=== PATIENT | male | born 1945 | race Caucasian/White ===

== ENCOUNTER 2020-04-17 11:43 | Inpatient (IN) | payer MEDICARE, BC, MEDICAID ==
[~2020-04-17] VITALS: Ht 177.8 cm; Wt 90.7 kg
[2020-04-17 12:26] LABS: BASOPHILS # (AUTO) 0.1 X10'3 (0-0.2); BASOPHILS % (AUTO) 0.5 % (0-1); EOSINOPHILS % (AUTO) 0.5 % (0-6); HEMATOCRIT 30.4 % (42.0-52.0); LYMPHOCYTES # (AUTO) 1.6 X10'3 (1.1-4.8); MEAN CORPUSCULAR HEMOGLOBIN 29.2 PG (27.0-31.0); MEAN CORPUSCULAR HGB CONC 32.8 g/dL (33.0-36.5); MEAN PLATELET VOLUME 7.2 FL (7.4-10.4); MONOCYTES % (AUTO) 10.3 % (2-12); NEUTROPHILS # (AUTO) 7.1 X10'3 (1.8-7.7); NEUTROPHILS % (AUTO) 72.7 % (42-75); PLATELET COUNT 394 X10'3 (140-440); RED BLOOD COUNT 3.42 X10'6 (4.70-6.10); RED CELL DISTRIBUTION WIDTH 16.3 % (11.5-14.5); WHITE BLOOD COUNT 9.8 X10'3 (4.5-11.0)
[2020-04-17 12:43] LABS: ALANINE AMINOTRANSFERASE 20 U/L (12-78); ALBUMIN 2.9 G/DL (3.4-5.0); ALBUMIN/GLOBULIN RATIO 0.7 (1.1-1.5); ALKALINE PHOSPHATASE 52 IU/L (46-116); ANION GAP 8 (8-16); ASPARTATE AMINO TRANSFERASE 22 U/L (10-37); BILIRUBIN,TOTAL 0.5 MG/DL (0.1-1.0); BLOOD UREA NITROGEN 12 MG/DL (7-18); CALCIUM 9.3 MG/DL (8.5-10.1); CHLORIDE 98 MMOL/L (99-107); CREATININE 0.92 MG/DL (0.60-1.10); GLUCOSE 110 MG/DL (70-104); POTASSIUM 3.7 MMOL/L (3.5-5.1); SODIUM 133 MMOL/L (135-145); TOTAL CARBON DIOXIDE 26.7 MMOL/L (24-32); TOTAL PROTEIN 7.1 G/DL (6.4-8.2); eGFR 80 ML/MIN
[2020-04-17] MEDS ORDERED: methylPREDNISolone sod succ 125mg/2ml vial IV ONE (13:15)
[2020-04-17] MEDS ORDERED: ipratropium/albuterol 3ml nebule NEB ONE (13:15)
[2020-04-17] MEDS ORDERED: ARIP5TAB14 PO (13:31)
[2020-04-17] MEDS ORDERED: CHOL100046 PO (13:31)
[2020-04-17] MEDS ORDERED: MULT1TAB65 PO (13:31)
[2020-04-17] MEDS ORDERED: ESCI5TAB12 PO (13:31)
[2020-04-17] MEDS ORDERED: FLUT16SP20 BOTHNARES (13:34)
[2020-04-17] MEDS ORDERED: LACT1CAP65 PO (13:34)
[2020-04-17] MEDS ORDERED: FINA5TAB11 PO (13:34)
[2020-04-17] MEDS ORDERED: FOLI0.4T14 PO (13:34)
[2020-04-17] MEDS ORDERED: POLY17PO10 PO (13:34)
[2020-04-17] MEDS ORDERED: MELA1TAB28 PO (13:34)
[2020-04-17] MEDS ORDERED: QUET25TA PO (13:37)
[2020-04-17] MEDS ORDERED: PSYL575P22 PO (13:37)
[2020-04-17] MEDS ORDERED: TIOT4MIS3 IH (13:37)
[2020-04-17] MEDS ORDERED: THIA50TA10 PO (13:37)
[2020-04-17] MEDS ORDERED: SUCR1TAB34 PO (13:42)
[2020-04-17] MEDS ORDERED: OMEP-50 PO (13:42)
[2020-04-17] MEDS ORDERED: DIAZ5TAB4 PO (13:42)
[2020-04-17] MEDS ORDERED: DOCU250C16 PO (13:42)
[2020-04-17] MEDS ORDERED: GUAI400T92 PO (13:42)
[2020-04-17] MEDS ORDERED: GABA-530 PO (13:42)
[2020-04-17] MEDS ORDERED: magnesium hydroxide 30ml (MOM) UD suspension PO PRN (14:55)
[2020-04-17] MEDS ORDERED: HYDROcodone/acetaminophen 5mg/325mg tablet PO PRN (14:55)
[2020-04-17] MEDS ORDERED: magnesium 2GM in 50ml NS 50 ML IV PRN (14:55)
[2020-04-17] MEDS ORDERED: magnesium 4gm in 100ml NS 100 ML IV PRN (14:55)
[2020-04-17] MEDS ORDERED: potassium CL 10mEq/100ml bag 100 ML IV PRN ×2 (14:55)
[2020-04-17] MEDS ORDERED: ondansetron/PF 4mg/2ml inj IV PRN (14:55)
[2020-04-17] MEDS ORDERED: mag hydrox/Alum hydrox/simeth 30ml oral suspension PO PRN (14:55)
[2020-04-17] MEDS ORDERED: bisacodyl 10mg suppository rectal RC PRN (14:55)
[2020-04-17] MEDS ORDERED: magnesium Cl slow-release 64mg tablet PO PRN (14:55)
[2020-04-17] MEDS ORDERED: acetaminophen 650mg rectal suppository RC PRN (14:55)
[2020-04-17] MEDS ORDERED: potassium Cl 20 mEq SR tablet PO PRN ×2 (14:55)
[2020-04-17] MEDS ORDERED: acetaminophen 325mg tablet PO PRN ×2 (14:55)
[2020-04-17] MEDS: normal saline 1000ml 1,000 ML IV SCH (15:32)
[2020-04-17 15:34] LABS: HEMOGLOBIN A1C 6.3 % (4.5-6.2)
--- NOTE | 2020-04-17 16:06 | NUR ---
Pt's [facility] called for update. Return #[phone], and to ask for Lydia or Zaina as they are significantly familiar with pt's case.
[2020-04-17 16:15] LABS: CLARITY,URINE SLIGHTLY CLOUDY (Clear); COLOR,URINE YELLOW (Yellow); GLUCOSE, URINE NEGATIVE (Neg); KETONES,URINE TRACE mg/dl (Neg); LEUKOCYTE ESTERASE ,URINE NEGATIVE (Neg); NITRITES, URINE NEGATIVE (Neg); OCCULT BLOOD,URINE NEGATIVE (Neg); PROTEIN,URINE NEGATIVE (Neg)
[2020-04-17 16:16] LABS: UA COLLECTION TYPE STRAIGHT CATH
[2020-04-17 16:21] LABS: HYALINE CASTS 0-3 /LPF (NEGATIVE); MUCUS STRANDS MANY /LPF (Neg); SQUAMOUS EPITHELIAL CELL,UR FEW /LPF (FEW); TRANSITIONAL EPI CELLS,URINE FEW /HPF
[2020-04-17 16:22] LABS: BACTERIA,URINE NONE SEEN /HPF (Neg); RBC,URINE 0-2 /HPF (0-2); WBC,URINE 0-4 /HPF (0-4)
[2020-04-17] MEDS: sucralfate 1 gm tablet PO SCH ×2 (17:00→21:00)
[2020-04-17 17:17] VITALS: BP 163/70
[2020-04-17] MEDS: HYDROcodone/acetaminophen 10/325mg tab PO PRN ×2 (17:26→21:33)
--- NOTE | 2020-04-17 18:02 | NUR ---
AGER ID: [id number] MESSAGE: [id number] Modgurpreet, Chava can I add a order for RT eval and treat his lung sound bad from COPD. #[id number] Susie (101 character message out of a maximum of 240) CLOSE [X]
--- NOTE | 2020-04-17 18:10 | NUR ---
Patient in room ORTHO 4010. I have received report from RYLAN Richards and had the opportunity to ask questions and assume patient care.
[2020-04-17] MEDS: K and/or MAG REPLACEMENT MC SCH (20:00)
[2020-04-17] MEDS: diazepam 5mg tablet PO SCH (20:03)
[2020-04-17] MEDS: docusate sod 250mg capsule PO SCH (20:03)
[2020-04-17] MEDS: heparin, porcine 5000 units/ml vial SQ SCH (20:03)
[2020-04-17] MEDS: gabapentin 100mg capsule PO SCH (20:03)
[2020-04-17] MEDS: lactobacillus rhamnosus 10,000 MMU CELLS/CAPSULE PO SCH (20:04)
[2020-04-17] MEDS: pantoprazole 40mg Tablet.DR PO SCH (20:08)
[2020-04-17] MEDS: QUEtiapine 25mg tablet PO SCH (20:08)
[2020-04-17] MEDS: polyethylene glycol 3350 17gm powd pack PO SCH (20:09)
[2020-04-17] MEDS: Melatonin 3mg tablet PO SCH (21:34)
[2020-04-17 22:00] VITALS: BP 149/73
[2020-04-18] MEDS: HYDROcodone/acetaminophen 10/325mg tab PO PRN ×4 (04:01→17:12)
[2020-04-18] MEDS: normal saline 1000ml 1,000 ML IV SCH ×2 (04:15→08:41)
[2020-04-18 06:00] VITALS: BP 150/69
--- NOTE | 2020-04-18 06:13 | NUR ---
Problems reprioritized. Patient report given, questions answered & plan of care reviewed with RYLAN [place].
[2020-04-18 06:31] LABS: BASOPHILS # (AUTO) 0.1 X10'3 (0-0.2); BASOPHILS % (AUTO) 0.7 % (0-1); EOSINOPHILS % (AUTO) 0 % (0-6); HEMATOCRIT 29.1 % (42.0-52.0); HEMOGLOBIN 9.8 g/dl (14.0-17.9); LYMPHOCYTES % (AUTO) 13.6 % (21-51); MEAN CORPUSCULAR HEMOGLOBIN 30.2 PG (27.0-31.0); MEAN CORPUSCULAR HGB CONC 33.5 g/dL (33.0-36.5); MEAN CORPUSCULAR VOLUME 90.2 FL (78-98); MEAN PLATELET VOLUME 7.7 FL (7.4-10.4); MONOCYTES # (AUTO) 0.6 X10'3 (0-0.9); MONOCYTES % (AUTO) 8.1 % (2-12); NEUTROPHILS # (AUTO) 5.5 X10'3 (1.8-7.7); NEUTROPHILS % (AUTO) 77.6 % (42-75); PLATELET COUNT 363 X10'3 (140-440); RED BLOOD COUNT 3.22 X10'6 (4.70-6.10); WHITE BLOOD COUNT 7.1 X10'3 (4.5-11.0)
--- NOTE | 2020-04-18 06:46 | NUR ---
Patient in room ORTHO 4010. I have received report from Lashanda FAGAN and had the opportunity to ask questions and assume patient care.
[2020-04-18 06:56] LABS: ALANINE AMINOTRANSFERASE 23 U/L (12-78); ALBUMIN 2.7 G/DL (3.4-5.0); ALBUMIN/GLOBULIN RATIO 0.6 (1.1-1.5); ALKALINE PHOSPHATASE 46 IU/L (46-116); ANION GAP 9 (8-16); ASPARTATE AMINO TRANSFERASE 26 U/L (10-37); BILIRUBIN,TOTAL 0.4 MG/DL (0.1-1.0); BLOOD UREA NITROGEN 15 MG/DL (7-18); CALCIUM 9.1 MG/DL (8.5-10.1); CHLORIDE 100 MMOL/L (99-107); CHOL/HDL RATIO 1.8 (0.00-4.99); CHOLESTEROL 135 MG/DL (0-200); CREATININE 0.79 MG/DL (0.60-1.10); GLUCOSE 116 MG/DL (70-104); HDL CHOLESTEROL 73 MG/DL (35-60); LDL CHOLESTEROL 53 MG/DL (50-100); MAGNESIUM 2.4 MG/DL (1.5-2.4); PHOSPHORUS 3.9 MG/DL (2.3-4.5); POTASSIUM 4.2 MMOL/L (3.5-5.1); SODIUM 135 MMOL/L (135-145); TOTAL CARBON DIOXIDE 25.8 MMOL/L (24-32); TRIGLYCERIDES 55 MG/DL (20-135); eGFR > 90 ML/MIN
[2020-04-18] MEDS: K and/or MAG REPLACEMENT MC SCH ×2 (08:00→20:00)
[2020-04-18] MEDS: Tiotropium Br/Olodaterol HCl (Stiolto Respimat Inhal Spray) IH SCH (08:00)
[2020-04-18] MEDS ORDERED: [UNRECOGNIZED DRUG - OTHER] PO SCH (08:00)
[2020-04-18] MEDS ORDERED: PSYLLIUM HUSK PO SCH (08:00)
[2020-04-18] MEDS: docusate sod 250mg capsule PO SCH ×2 (08:04→20:32)
[2020-04-18] MEDS: lactobacillus rhamnosus 10,000 MMU CELLS/CAPSULE PO SCH ×2 (08:06→20:14)
[2020-04-18] MEDS: folic acid 0.4mg tablet PO SCH (08:08)
[2020-04-18] MEDS: gabapentin 100mg capsule PO SCH ×2 (08:10→20:14)
[2020-04-18] MEDS: pantoprazole 40mg Tablet.DR PO SCH ×2 (08:10→20:32)
[2020-04-18] MEDS: thiamine 100mg tablet PO SCH (08:11)
[2020-04-18] MEDS: multivitamins, therapeutics tablet PO SCH (08:11)
[2020-04-18] MEDS: diazepam 5mg tablet PO SCH ×2 (08:12→20:14)
[2020-04-18] MEDS: aripiprazole 5mg tablet PO SCH (08:13)
[2020-04-18] MEDS: ESCITALOPRAM OXALATE 5 MG TABLET PO SCH (08:14)
[2020-04-18] MEDS: sucralfate 1 gm tablet PO SCH ×4 (08:15→20:14)
[2020-04-18] MEDS: heparin, porcine 5000 units/ml vial SQ SCH ×2 (08:19→20:13)
[2020-04-18] MEDS: psyllium seed 3.4 gm packet PO SCH (08:26)
[2020-04-18] MEDS: finasteride 5mg tablet PO SCH (08:32)
[2020-04-18 10:00] VITALS: BP 159/68
--- NOTE | 2020-04-18 11:16 | NUR ---
Student Medication Administration: For this medication-pass time frame 8377-8467, all medications were reviewed, administered and documented per hospital policy by Lefty Tinajero. Student documentation:I have reviewed and agree with all interventions, assessments performed and documented by Lefty Tinajero.
[2020-04-18] MEDS: morphine 2 MG/ML inj. syringe IV PRN ×3 (11:21→20:15)
[2020-04-18] MEDS ORDERED: pneumococcal 23-VAL P-sac vacc 25 mcg/0.5ml vial IMVAC ONE (15:10)
[2020-04-18 18:00] VITALS: BP 155/64
--- NOTE | 2020-04-18 18:32 | NUR ---
Problems reprioritized. Patient report given, questions answered & plan of care reviewed with Peggy FAGAN.
[2020-04-18] MEDS: QUEtiapine 25mg tablet PO SCH (20:13)
[2020-04-18] MEDS: polyethylene glycol 3350 17gm powd pack PO SCH (20:14)
[2020-04-18 22:00] VITALS: BP 155/67
[2020-04-19] VITALS (17 sets, daily range): BP systolic 135–202; BP diastolic 62–101
[2020-04-19] MEDS: normal saline 1000ml 1,000 ML IV SCH ×3 (00:04→19:40)
[2020-04-19] MEDS: HYDROcodone/acetaminophen 10/325mg tab PO PRN ×3 (00:04→22:48)
[2020-04-19] MEDS: Melatonin 3mg tablet PO SCH ×2 (00:04→22:25)
[2020-04-19] MEDS: morphine 2 MG/ML inj. syringe IV PRN ×3 (03:16→12:52)
--- NOTE | 2020-04-19 06:37 | NUR ---
Patient in room ORTHO 4009. I have received report from edie from surgical and had the opportunity to ask questions and assume patient care.
[2020-04-19 06:49] LABS: BASOPHILS # (AUTO) 0.1 X10'3 (0-0.2); BASOPHILS % (AUTO) 0.8 % (0-1); EOSINOPHILS # (AUTO) 0.2 X10'3 (0-0.9); EOSINOPHILS % (AUTO) 2.4 % (0-6); HEMATOCRIT 29.3 % (42.0-52.0); HEMOGLOBIN 9.5 g/dl (14.0-17.9); LYMPHOCYTES # (AUTO) 2.6 X10'3 (1.1-4.8); LYMPHOCYTES % (AUTO) 35.4 % (21-51); MEAN CORPUSCULAR HEMOGLOBIN 29.8 PG (27.0-31.0); MEAN CORPUSCULAR HGB CONC 32.4 g/dL (33.0-36.5); MEAN CORPUSCULAR VOLUME 91.9 FL (78-98); MEAN PLATELET VOLUME 7.5 FL (7.4-10.4); MONOCYTES # (AUTO) 0.8 X10'3 (0-0.9); MONOCYTES % (AUTO) 11.2 % (2-12); NEUTROPHILS # (AUTO) 3.7 X10'3 (1.8-7.7); NEUTROPHILS % (AUTO) 50.2 % (42-75); PLATELET COUNT 348 X10'3 (140-440); RED BLOOD COUNT 3.18 X10'6 (4.70-6.10); RED CELL DISTRIBUTION WIDTH 16.5 % (11.5-14.5); WHITE BLOOD COUNT 7.4 X10'3 (4.5-11.0)
[2020-04-19 06:57] LABS: ALANINE AMINOTRANSFERASE 28 U/L (12-78); ALBUMIN 2.6 G/DL (3.4-5.0); ALBUMIN/GLOBULIN RATIO 0.7 (1.1-1.5); ALKALINE PHOSPHATASE 44 IU/L (46-116); ANION GAP 8 (8-16); ASPARTATE AMINO TRANSFERASE 31 U/L (10-37); BILIRUBIN,TOTAL 0.4 MG/DL (0.1-1.0); BLOOD UREA NITROGEN 12 MG/DL (7-18); BUN/CREATININE RATIO 14.6 (5.4-32.0); CALCIUM 8.3 MG/DL (8.5-10.1); CHLORIDE 105 MMOL/L (99-107); CREATININE 0.82 MG/DL (0.60-1.10); GLUCOSE 87 MG/DL (70-104); MAGNESIUM 2.2 MG/DL (1.5-2.4); PHOSPHORUS 2.9 MG/DL (2.3-4.5); POTASSIUM 3.6 MMOL/L (3.5-5.1); SODIUM 140 MMOL/L (135-145); TOTAL CARBON DIOXIDE 26.6 MMOL/L (24-32); TOTAL PROTEIN 6.6 G/DL (6.4-8.2); eGFR > 90 ML/MIN
[2020-04-19] MEDS: K and/or MAG REPLACEMENT MC SCH ×2 (07:20→20:00)
[2020-04-19] MEDS: heparin, porcine 5000 units/ml vial SQ SCH ×2 (07:21→22:06)
[2020-04-19] MEDS: lactobacillus rhamnosus 10,000 MMU CELLS/CAPSULE PO SCH ×2 (07:48→22:15)
[2020-04-19] MEDS: multivitamins, therapeutics tablet PO SCH (07:48)
[2020-04-19] MEDS: sucralfate 1 gm tablet PO SCH ×4 (07:49→22:15)
[2020-04-19] MEDS: pantoprazole 40mg Tablet.DR PO SCH ×2 (07:49→22:15)
[2020-04-19] MEDS: aripiprazole 5mg tablet PO SCH (07:49)
[2020-04-19] MEDS: diazepam 5mg tablet PO SCH ×2 (07:49→22:15)
[2020-04-19] MEDS: psyllium seed 3.4 gm packet PO SCH (07:49)
[2020-04-19] MEDS: docusate sod 250mg capsule PO SCH ×2 (07:49→22:15)
[2020-04-19] MEDS: gabapentin 100mg capsule PO SCH ×2 (07:50→22:15)
[2020-04-19] MEDS: thiamine 100mg tablet PO SCH (07:50)
[2020-04-19] MEDS: folic acid 0.4mg tablet PO SCH (07:50)
[2020-04-19] MEDS: ESCITALOPRAM OXALATE 5 MG TABLET PO SCH (07:50)
[2020-04-19] MEDS: Tiotropium Br/Olodaterol HCl (Stiolto Respimat Inhal Spray) IH SCH (07:51)
[2020-04-19] MEDS: finasteride 5mg tablet PO SCH (07:52)
--- NOTE | 2020-04-19 12:57 | NUR ---
Problems reprioritized. Patient report given, questions answered & plan of care reviewed with Libertad from recovery.
[2020-04-19] MEDS ORDERED: ondansetron/PF 4mg/2ml inj ONE (13:53)
[2020-04-19] MEDS ORDERED: propofol inj 20 ML IV ONE (13:53)
[2020-04-19] MEDS ORDERED: fentaNYL/PF 50MCG/1 ML 2ML syringe ONE (13:53)
[2020-04-19] MEDS ORDERED: LIDOcaine 2% (20mg/ml) 5ml vial ONE (13:53)
[2020-04-19] MEDS ORDERED: succinylcholine 20mg/ml inj IV ONE (13:53)
[2020-04-19] MEDS ORDERED: ROPIVAcaine 0.5% (5mg/ml) 30ml vial ONE (13:54)
[2020-04-19] MEDS ORDERED: clindamycin phosphate 150mg/ml inj. ONE (15:05)
[2020-04-19] MEDS ORDERED: dexamethasone sod phosphate 4mg/ml inj. ONE (15:15)
[2020-04-19] MEDS ORDERED: ondansetron/PF 4mg/2ml inj IV PRN ×2 (15:40→18:25)
[2020-04-19] MEDS ORDERED: tranexamic acid inj. 1,000 MG in normal saline 100ml IV soln 100 ML IV ONE (15:40)
[2020-04-19] MEDS ORDERED: ringers solution, lacted 1,000 ML IV SCH (15:40)
[2020-04-19] MEDS ORDERED: morphine 2 MG/ML inj. syringe IV PRN (15:40)
[2020-04-19] MEDS ORDERED: fentaNYL/PF 50MCG/1 ML 2ML syringe IV PRN ×2 (15:40)
[2020-04-19] MEDS ORDERED: morphine 4 MG/ML inj SYRINge IV PRN (15:40)
[2020-04-19] MEDS ORDERED: ROPIVAcaine 0.2% (10 MG/5 ML) BOLUS INJECTION INTERSCALE PRN (15:40)
[2020-04-19] MEDS ORDERED: hydrALAZINE 20mg/ml inj. IV PRN (15:40)
[2020-04-19] MEDS ORDERED: labetalol 20mg/4ml (5mg/ml) syringe IV PRN (15:40)
[2020-04-19] MEDS: ceFAZolin 1000mg inj ONE ×2 (16:03→16:04)
--- NOTE | 2020-04-19 18:12 | NUR ---
Problems reprioritized. Patient report given, questions answered & plan of care reviewed with
--- NOTE | 2020-04-19 18:16 | NUR ---
Received from OR via ORTHO BED WITH [facility] , accompanied by Anesthesiologist CURRY and report given by Anesthesiolgist. PATIENT WITH 20G PIV IN LEFT UE RUNNING LR AT 100, DENIES PAIN AT THIS TIME. SCDS DONNED BILATERALLY. RIGHT SHOULDER ANTERIOR DRESSING IS CDI. SHOULDER WRAP AND POWDER PACK PRESENT AND ARE CDI. PATIENT WITH 10L MASK ON WITH 100% SATURATIONS. Addendum: 04/19/20 at 1830 by Michele Das RN, RN Amended: Links added.
[2020-04-19] MEDS ORDERED: diphenhydrAMINE 25mg capsule PO PRN ×2 (18:25)
[2020-04-19] MEDS ORDERED: magnesium hydroxide 30ml (MOM) UD suspension PO PRN (18:25)
[2020-04-19] MEDS ORDERED: bisacodyl 10mg suppository rectal RC PRN (18:25)
[2020-04-19] MEDS ORDERED: acetaminophen 325mg tablet PO PRN (18:25)
--- NOTE | 2020-04-19 18:34 | NUR ---
Patient in room ORTHO 4009. I have received report from Jw FAGAN and had the opportunity to ask questions and assume patient care.
--- NOTE | 2020-04-19 18:52 | NUR ---
Received report from Michele FAGAN in recovery
--- NOTE | 2020-04-19 19:06 | NUR ---
Report called to receiving nurse. Transferred via ORTHO BED WITH ONE BAG OF Belongings AND A CANE. Special Issues communicated to receiving nurse GONZÁLEZ FAGAN. ALL VS WNL. DRESSING TO RIGHT SHOULDER IS CDI, ON Q BALL CONNECTED TO NERVE BLOCK SITE. PATIENT VERBAL AND DENIES PAIN. SHIELDS CATHETER WITH CLEAR YELLOW URINE IN ATRIUM. Addendum: 04/19/20 at 1923 by Michele Das RN, RN Amended: Links added.
[2020-04-19] MEDS ORDERED: vancomycin/NS 1 GM ADD-VANTAGE 250 ML IV SCH (20:00)
[2020-04-19] MEDS: sennosides 8.6mg tablet PO SCH (21:00)
[2020-04-19] MEDS: polyethylene glycol 3350 17gm powd pack PO SCH (22:07)
[2020-04-19] MEDS: QUEtiapine 25mg tablet PO SCH (22:15)
[2020-04-19] MEDS: ROPIVAcaine 0.2%/PF PUMP/bolus 550 ML INTERSCALE SCH (22:17)
[2020-04-20] MEDS: clindamycin-Cleocin 900mg/D5W 50 ML IV SCH ×3 (01:57→16:11)
[2020-04-20 02:15] VITALS: BP 153/72
[2020-04-20] MEDS: HYDROcodone/acetaminophen 10/325mg tab PO PRN ×4 (05:26→20:06)
[2020-04-20 06:00] VITALS: BP 166/73
[2020-04-20 06:27] LABS: ALANINE AMINOTRANSFERASE 34 U/L (12-78); ALBUMIN 2.7 G/DL (3.4-5.0); ALBUMIN/GLOBULIN RATIO 0.7 (1.1-1.5); ALKALINE PHOSPHATASE 50 IU/L (46-116); ANION GAP 7 (8-16); ASPARTATE AMINO TRANSFERASE 36 U/L (10-37); BILIRUBIN,TOTAL 0.6 MG/DL (0.1-1.0); BLOOD UREA NITROGEN 11 MG/DL (7-18); BUN/CREATININE RATIO 12.9 (5.4-32.0); CALCIUM 8.2 MG/DL (8.5-10.1); CHLORIDE 104 MMOL/L (99-107); CREATININE 0.85 MG/DL (0.60-1.10); GLUCOSE 97 MG/DL (70-104); MAGNESIUM 2.1 MG/DL (1.5-2.4); POTASSIUM 4.4 MMOL/L (3.5-5.1); SODIUM 137 MMOL/L (135-145); TOTAL CARBON DIOXIDE 25.8 MMOL/L (24-32); TOTAL PROTEIN 6.8 G/DL (6.4-8.2); eGFR 88 ML/MIN
--- NOTE | 2020-04-20 06:35 | NUR ---
Problems reprioritized. Patient report given, questions answered & plan of care reviewed with Jw FAGAN.
--- NOTE | 2020-04-20 06:40 | NUR ---
Patient in room ORTHO 4009. I have received report from Estrella and had the opportunity to ask questions and assume patient care.
[2020-04-20 07:08] LABS: BASOPHILS # (AUTO) 0.1 X10'3 (0-0.2); BASOPHILS % (AUTO) 0.5 % (0-1); EOSINOPHILS % (AUTO) 0 % (0-6); HEMATOCRIT 28.4 % (42.0-52.0); HEMOGLOBIN 9.4 g/dl (14.0-17.9); LYMPHOCYTES # (AUTO) 1.7 X10'3 (1.1-4.8); LYMPHOCYTES % (AUTO) 16.6 % (21-51); MEAN CORPUSCULAR HEMOGLOBIN 30.2 PG (27.0-31.0); MEAN CORPUSCULAR VOLUME 91.4 FL (78-98); MEAN PLATELET VOLUME 7.7 FL (7.4-10.4); MONOCYTES # (AUTO) 1.2 X10'3 (0-0.9); MONOCYTES % (AUTO) 11.3 % (2-12); NEUTROPHILS # (AUTO) 7.3 X10'3 (1.8-7.7); NEUTROPHILS % (AUTO) 71.6 % (42-75); PLATELET COUNT 374 X10'3 (140-440); RED BLOOD COUNT 3.11 X10'6 (4.70-6.10); RED CELL DISTRIBUTION WIDTH 16.5 % (11.5-14.5); WHITE BLOOD COUNT 10.3 X10'3 (4.5-11.0)
[2020-04-20] MEDS: Tiotropium Br/Olodaterol HCl (Stiolto Respimat Inhal Spray) IH SCH (08:00)
[2020-04-20] MEDS: aripiprazole 5mg tablet PO SCH (08:30)
[2020-04-20] MEDS: lactobacillus rhamnosus 10,000 MMU CELLS/CAPSULE PO SCH ×2 (08:30→20:00)
[2020-04-20] MEDS: docusate sod 250mg capsule PO SCH ×2 (08:30→19:59)
[2020-04-20] MEDS: folic acid 0.4mg tablet PO SCH (08:31)
[2020-04-20] MEDS: gabapentin 100mg capsule PO SCH ×2 (08:32→20:00)
[2020-04-20] MEDS: psyllium seed 3.4 gm packet PO SCH (08:32)
[2020-04-20] MEDS: ESCITALOPRAM OXALATE 5 MG TABLET PO SCH (08:32)
[2020-04-20] MEDS: pantoprazole 40mg Tablet.DR PO SCH ×2 (08:33→20:00)
[2020-04-20] MEDS: multivitamins, therapeutics tablet PO SCH (08:33)
[2020-04-20] MEDS: finasteride 5mg tablet PO SCH (08:33)
[2020-04-20] MEDS: thiamine 100mg tablet PO SCH (08:34)
[2020-04-20] MEDS: diazepam 5mg tablet PO SCH ×2 (08:34→20:00)
[2020-04-20] MEDS: heparin, porcine 5000 units/ml vial SQ SCH ×2 (08:36→20:00)
[2020-04-20] MEDS: sucralfate 1 gm tablet PO SCH ×4 (08:44→20:46)
[2020-04-20] MEDS: K and/or MAG REPLACEMENT MC SCH ×2 (08:59→20:00)
[2020-04-20 10:00] VITALS: BP 168/71
[2020-04-20] MEDS: morphine 2 MG/ML inj. syringe IV PRN ×2 (10:15→15:24)
--- NOTE | 2020-04-20 12:20 | NUR ---
Jw [id number] Re; Chava Napier Patient short of breath and having breathing difficulties. Can we order RT Tx
[2020-04-20] MEDS: ipratropium/albuterol 3ml nebule NEB PRN ×2 (12:54→18:58)
[2020-04-20 14:00] VITALS: BP 162/74
[2020-04-20 17:00] VITALS: BP 170/65
--- NOTE | 2020-04-20 18:08 | NUR ---
Problems reprioritized. Patient report given, questions answered & plan of care reviewed with AMBER.
[2020-04-20] MEDS: furosemide 20 MG/2 ML vial IV SCH (19:59)
[2020-04-20] MEDS: polyethylene glycol 3350 17gm powd pack PO SCH (20:12)
[2020-04-20] MEDS: sennosides 8.6mg tablet PO SCH (20:12)
[2020-04-20] MEDS: Melatonin 3mg tablet PO SCH (20:46)
[2020-04-20] MEDS: QUEtiapine 25mg tablet PO SCH (20:46)
[2020-04-20 22:00] VITALS: BP 156/75
[2020-04-21 01:39] VITALS: BP 166/80
[2020-04-21] MEDS: HYDROcodone/acetaminophen 10/325mg tab PO PRN ×2 (05:45→08:40)
--- NOTE | 2020-04-21 05:56 | NUR ---
FC removed, pt tolerated well. educated pt about FC removal and about PRV and bladder scanning. will continue to monitor.
[2020-04-21 06:21] LABS: BASOPHILS % (AUTO) 0.4 % (0-1); EOSINOPHILS % (AUTO) 0 % (0-6); HEMATOCRIT 26.7 % (42.0-52.0); HEMOGLOBIN 8.7 g/dl (14.0-17.9); LYMPHOCYTES # (AUTO) 1.3 X10'3 (1.1-4.8); LYMPHOCYTES % (AUTO) 11.1 % (21-51); MEAN CORPUSCULAR HEMOGLOBIN 28.8 PG (27.0-31.0); MEAN CORPUSCULAR HGB CONC 32.4 g/dL (33.0-36.5); MEAN PLATELET VOLUME 7.5 FL (7.4-10.4); MONOCYTES # (AUTO) 0.8 X10'3 (0-0.9); NEUTROPHILS # (AUTO) 9.6 X10'3 (1.8-7.7); NEUTROPHILS % (AUTO) 81.5 % (42-75); PLATELET COUNT 397 X10'3 (140-440); RED CELL DISTRIBUTION WIDTH 16.7 % (11.5-14.5); WHITE BLOOD COUNT 11.8 X10'3 (4.5-11.0)
--- NOTE | 2020-04-21 06:27 | NUR ---
Patient in room ORTHO 4007. I have received report from Dian and had the opportunity to ask questions and assume patient care.
--- NOTE | 2020-04-21 06:28 | NUR ---
Problems reprioritized. Patient report given, questions answered & plan of care reviewed with Jw FAGAN.
[2020-04-21 06:32] VITALS: BP 164/86
[2020-04-21 06:44] LABS: ALANINE AMINOTRANSFERASE 33 U/L (12-78); ALBUMIN 2.5 G/DL (3.4-5.0); ALBUMIN/GLOBULIN RATIO 0.6 (1.1-1.5); ALKALINE PHOSPHATASE 46 IU/L (46-116); ANION GAP 10 (8-16); ASPARTATE AMINO TRANSFERASE 26 U/L (10-37); BILIRUBIN,TOTAL 0.5 MG/DL (0.1-1.0); BLOOD UREA NITROGEN 12 MG/DL (7-18); CALCIUM 8.2 MG/DL (8.5-10.1); CHLORIDE 102 MMOL/L (99-107); CREATININE 0.92 MG/DL (0.60-1.10); GLUCOSE 98 MG/DL (70-104); POTASSIUM 3.6 MMOL/L (3.5-5.1); SODIUM 137 MMOL/L (135-145); TOTAL CARBON DIOXIDE 25.5 MMOL/L (24-32); TOTAL PROTEIN 6.6 G/DL (6.4-8.2); eGFR 80 ML/MIN
[2020-04-21] MEDS: Tiotropium Br/Olodaterol HCl (Stiolto Respimat Inhal Spray) IH SCH (06:46)
[2020-04-21] MEDS: K and/or MAG REPLACEMENT MC SCH (06:47)
[2020-04-21] MEDS: docusate sod 250mg capsule PO SCH (08:32)
[2020-04-21] MEDS: ESCITALOPRAM OXALATE 5 MG TABLET PO SCH (08:32)
[2020-04-21] MEDS: lactobacillus rhamnosus 10,000 MMU CELLS/CAPSULE PO SCH (08:32)
[2020-04-21] MEDS: thiamine 100mg tablet PO SCH (08:33)
[2020-04-21] MEDS: aripiprazole 5mg tablet PO SCH (08:33)
[2020-04-21] MEDS: gabapentin 100mg capsule PO SCH (08:33)
[2020-04-21] MEDS: folic acid 0.4mg tablet PO SCH (08:37)
[2020-04-21] MEDS: diazepam 5mg tablet PO SCH (08:41)
[2020-04-21] MEDS: sucralfate 1 gm tablet PO SCH ×2 (08:41→12:02)
[2020-04-21] MEDS: pantoprazole 40mg Tablet.DR PO SCH (08:41)
[2020-04-21] MEDS: multivitamins, therapeutics tablet PO SCH (08:42)
[2020-04-21] MEDS: psyllium seed 3.4 gm packet PO SCH (08:42)
[2020-04-21] MEDS: finasteride 5mg tablet PO SCH (08:43)
[2020-04-21] MEDS: furosemide 20 MG/2 ML vial IV SCH (08:43)
[2020-04-21] MEDS: heparin, porcine 5000 units/ml vial SQ SCH (08:44)
[2020-04-21] MEDS: ROPIVAcaine 0.2%/PF PUMP/bolus 550 ML INTERSCALE SCH (09:57)
[2020-04-21 10:00] VITALS: BP 158/77
--- NOTE | 2020-04-21 10:00 | NUR ---
room 4009B Chava Napier will need a Resp tx. thank you
[2020-04-21] MEDS: ipratropium/albuterol 3ml nebule NEB PRN (10:22)
--- NOTE | 2020-04-21 12:41 | NUR ---
Problems reprioritized. Patient report given, questions answered & plan of care reviewed with Amado from [facility].
--- NOTE | 2020-04-21 13:55 | NUR ---
Safe DC with [facility] personnel. All personal items with patient.
== END 2020-04-21 13:55 | DRG 483 ==
LOC: ER 11:44 → ED HOLD 14:55 → ORTHO 4S 16:35
PROVIDERS: ADMIT Family Medicine; ATTEND Family Medicine
PROC: 3E0234Z Introduction of Serum, Toxoid and Vaccine into Muscle, Percutaneous Approach (ICD-10-PCS; 2020-04-18)
PROC: 3E0T3BZ Introduction of Anesthetic Agent into Peripheral Nerves and Plexi, Percutaneous Approach (ICD-10-PCS; 2020-04-19)
PROC: 0RRJ00Z Replacement of Right Shoulder Joint with Reverse Ball and Socket Synthetic Substitute, Open Approach (ICD-10-PCS; principal; 2020-04-19 14:35)
DX: S42.241A 4-part fracture of surgical neck of right humerus, initial encounter for closed fracture (principal); E87.1 Hypo-osmolality and hyponatremia; D64.9 Anemia, unspecified; E11.9 Type 2 diabetes mellitus without complications; J44.9 Chronic obstructive pulmonary disease, unspecified; F41.8 Other specified anxiety disorders; W01.0XXA Fall on same level from slipping, tripping and stumbling without subsequent striking against object, initial encounter; N40.0 Benign prostatic hyperplasia without lower urinary tract symptoms; R29.6 Repeated falls; G89.29 Other chronic pain; K21.9 Gastro-esophageal reflux disease without esophagitis; F17.210 Nicotine dependence, cigarettes, uncomplicated; Z66 Do not resuscitate; Z79.899 Other long term (current) drug therapy; Z99.81 Dependence on supplemental oxygen; Z23 Encounter for immunization; Z88.0 Allergy status to penicillin; Y93.89 Activity, other specified; Y92.89 Other specified places as the place of occurrence of the external cause; Y99.8 Other external cause status; Z20.828 Contact with and (suspected) exposure to other viral communicable diseases
CPT/HCPCS: 36415; 71045; 73060; 80053; 80061; 81001; 83036; 83735; 83880; 84100; 85025; 85610; 86885; 86900; 86901; 86920; 87635; 93005; 93306; 94640; 94760; 96374; 97161; 97530; 97535; 99285; A4215; A4565; A4618; A6253; A7000; A9272; C1713; C1758; C1776; G0378; J0330; J0690; J1100; J1644; J1940; J2001; J2270; J2405; J2704; J2795; J2930; J3010; J3370; J3490; J7030; J7120